=== PATIENT | female | born 1970 ===

== ENCOUNTER 2018-01-28 08:06 | Day surgery (SDC) | payer OTHER ==
[~2018-01-28 08:06] MED LIST: AMOX1TAB8 PO; INTESTINEX680 MG PO; OMEPRAZOLE20 MG PO; PERCOCET 5/3251 TAB PO
== END 2018-01-28 12:43 | disposition home or self-care (01) ==
LOC: AMB-ENDOS 08:06
DX: K57.30 Diverticulosis of large intestine without perforation or abscess without bleeding (principal)

== ENCOUNTER 2019-03-03 07:08 | Day surgery (SDC) | payer OTHER | END 2019-03-03 12:10 | disposition home or self-care (01) | LOC: AMB-ENDOS 07:08 | DX: K57.32 Diverticulitis of large intestine without perforation or abscess without bleeding (principal); K64.1 Second degree hemorrhoids ==

== ENCOUNTER 2020-11-24 07:47 | Inpatient (IN) | payer OTHER ==
[~2020-11-24] VITALS: Ht 157.5 cm; Wt 70.3 kg
[2020-11-24] MEDS ORDERED: METOPROLOL SUCC25 MG (08:03)
[2020-11-26] MEDS ORDERED: CO Q-10200 MG (10:27)
[2020-11-26] MEDS ORDERED: LEVOTHYROXINE25 MC1 (10:27)
[2020-11-26] MEDS ORDERED: OMEGA-3 ACID ETH1 GM (10:28)
[2020-11-26] MEDS ORDERED: ROSUVASTATIN CA10 MG (10:28)
[2020-11-26] MEDS ORDERED: NORVASC2.5 MG (10:28)
[2020-11-26] MEDS ORDERED: EZETIMIBE10 MG (10:28)
[2020-11-30] MEDS ORDERED: INTESTINEX680 M1 PO (10:19)
[2020-11-30] MEDS ORDERED: PRILOSEC OTC20 MG PO (10:19)
[2020-11-30] MEDS ORDERED: PERCOCET 5-3251 EACH PO (10:19)
== END 2020-11-30 11:16 | disposition home or self-care (01) | DRG 329 ==
LOC: ER 07:47 → SURG 15:36 → SEC-K 15:36 → SURG 11-25 10:29
PROVIDERS: ADMIT Surgery; ATTEND Surgery
PROC: BW21Y0Z Computerized Tomography (CT Scan) of Abdomen and Pelvis using Other Contrast, Unenhanced and Enhanced (ICD-10-PCS; 2020-11-24)
PROC: 0DBF0ZZ Excision of Right Large Intestine, Open Approach (ICD-10-PCS; principal; 2020-11-27)
PROC: 02HV33Z Insertion of Infusion Device into Superior Vena Cava, Percutaneous Approach (ICD-10-PCS; 2020-11-27)
PROC: 3E043KZ Introduction of Other Diagnostic Substance into Central Vein, Percutaneous Approach (ICD-10-PCS; 2020-11-27)
DX: K57.32 Diverticulitis of large intestine without perforation or abscess without bleeding (principal); K56.2 Volvulus; K56.600 Partial intestinal obstruction, unspecified as to cause; D62 Acute posthemorrhagic anemia; I11.9 Hypertensive heart disease without heart failure